=== PATIENT | female | born 1985 | race Two or more races ===

== ENCOUNTER 2022-11-15 18:58 | Emergency (ER) | payer SELFPAY ==
[~2022-11-15] VITALS: Ht 157.5 cm; Wt 68.0 kg
[2022-11-15] MEDS ORDERED: KETOROLAC 60MG/2ML VIAL IM ONE (20:45)
[2022-11-15] MEDS ORDERED: LORAZEPAM 0.5MG TABLET PO ONE (20:45)
[2022-11-15] MEDS ORDERED: IBUP-2029 MT (21:38)
[2022-11-15] MEDS ORDERED: CYCL10TA21 MT (21:38)
[2022-11-15 22:05] VITALS: BP 124/68
== END 2022-11-15 22:06 | disposition home or self-care (01) ==
LOC: ER 18:58
DX: S13.4XXA Sprain of ligaments of cervical spine, initial encounter (principal); S33.5XXA Sprain of ligaments of lumbar spine, initial encounter; I10 Essential (primary) hypertension; Z68.27 Body mass index [BMI] 27.0-27.9, adult; V49.9XXA Car occupant (driver) (passenger) injured in unspecified traffic accident, initial encounter; Y93.89 Activity, other specified; Y92.89 Other specified places as the place of occurrence of the external cause; Y99.8 Other external cause status
CPT/HCPCS: 81025; 96372; 99283; J1885